=== PATIENT | male | born 1970 | race Caucasian/White ===

== ENCOUNTER → 2018-03-26 | Outpatient (CLI) | payer OTHER ==
[~2018-03-26] MED LIST: FINA1TAB16 PO; OMEP-110 PO; TRAM50TA2 PO; VALA500T4 PO
[2018-03-26 09:37] LABS: HCT (SEDRATE) 46.3 % (39.2-51.8)
[2018-03-26 09:39] LABS: BASOPHILS # (AUTO) 0.03 x10^3/uL (0-0.1); BASOPHILS % (AUTO) 1 % (0-1); EOSINOPHILS % (AUTO) 2 % (1-7); LYMPHOCYTES # (AUTO) 1.65 x10^3/uL (1-3.4); LYMPHOCYTES % (AUTO) 32 % (22-44); MD NO; MEAN CORPUSCULAR HEMOGLOBIN 33.8 pg (27.5-34.5); MEAN CORPUSCULAR HGB CONC 34.8 g/dL (33.2-36.2); MEAN PLATELET VOLUME 7.9 fL (7.4-10.4); MONOCYTES # (AUTO) 0.44 x10^3/uL (0.2-0.8); MONOCYTES % (AUTO) 9 % (2-9); NEUTROPHILS # (AUTO) 2.92 x10^3/uL (1.8-6.8); NEUTROPHILS % (AUTO) 57 % (42-75); PLATELET COUNT 247 x10^3/uL (130-400); RED BLOOD COUNT 4.77 x10^6/uL (4.38-5.82); RED CELL DISTRIBUTION WIDTH 13.5 % (9.4-14.8)
[2018-03-26 09:50] LABS: ALBUMIN 3.9 g/dL (3.4-5.0); ANION GAP 5 mmol/L (5-15); CALCIUM 8.9 mg/dL (8.5-10.1); CHLORIDE 107 mmol/L (98-107)
[2018-03-26 09:55] LABS: ALANINE AMINOTRANSFERASE 29 U/L (12-78); ALKALINE PHOSPHATASE 69 U/L (45-117); CREATININE 1.22 mg/dL (0.7-1.3)
[2018-03-26 10:25] LABS: MICROSCOPIC NOT IND
[2018-03-26 10:27] LABS: CULTURE INDICATED? NO
[2018-03-26 11:23] LABS: INTERNATIONAL NORMALIZED RATIO 1.03 (0.93-1.1); PROTHROMBIN TIME 10.7 Seconds (9.6-11.5)
== END | disposition home or self-care (01) ==
LOC: STAR 08:25
PROVIDERS: ATTEND Orthopaedic Surgery Orthopaedic Surgery of the Spine
DX: Z01.818 Encounter for other preprocedural examination (principal); M54.16 Radiculopathy, lumbar region
CPT/HCPCS: 36415; 71046; 80053; 80074; 81003; 85025; 85610; 85651; 85730; 87806; 93005; G0475

== ENCOUNTER 2018-04-06 10:07 | Day surgery (SDC) | payer OTHER ==
[2018-03-26 08:51] VITALS: BP 115/83
[~2018-04-06] VITALS: Ht 193 cm; Wt 103.2 kg
[2018-04-06] MEDS ORDERED: LACTATED RINGERS 1,000 ML IV SCH (10:45)
[2018-04-06] MEDS ORDERED: GABAPENTIN PO (10:49)
[2018-04-06] MEDS ORDERED: MUPI22OI2 TP (10:56)
[2018-04-06] MEDS ORDERED: LIDOCAINE-MPF 1%, 2ML INFIL ONE (11:00)
[2018-04-06] MEDS ORDERED: PROPOFOL 10 MG/ML, 20ML ONE ×4 (11:49→11:50)
[2018-04-06] MEDS ORDERED: CEFAZOLIN 1,000 MG ONE (11:50)
[2018-04-06] MEDS ORDERED: SODIUM CHLORIDE 0.9% PF 10ML ONE (11:52)
[2018-04-06] MEDS ORDERED: ONDANSETRON 2MG/ML, 2ML ONE (11:57)
[2018-04-06] MEDS ORDERED: DEXAMETHASONE 4 MG/ML, 1ML ONE (11:57)
[2018-04-06] MEDS ORDERED: LIDOCAINE-MPF 2% ,5ML ONE ×2 (11:57)
[2018-04-06] MEDS ORDERED: METOCLOPRAMIDE 5 MG/ML, 2ML ONE (11:57)
[2018-04-06] MEDS ORDERED: ROCURONIUM 10MG/ML,5ML ONE (11:58)
[2018-04-06] MEDS ORDERED: THROMBIN 5,000 UNIT VIAL TP ONE (12:46)
[2018-04-06] MEDS ORDERED: BUPIVACAINE/PF-EPI 0.5% 1:200K ONE (12:46)
[2018-04-06] MEDS ORDERED: VANCOMYCIN 1,000 MG ONE (12:46)
[2018-04-06] MEDS ORDERED: BACITRACIN 50,000 UNIT ONE (12:47)
[2018-04-06] MEDS ORDERED: LIDOCAINE 1%-EPI 1:100K, 30ML ONE (12:47)
[2018-04-06] MEDS ORDERED: MIDAZOLAM 1 MG/ML, 2ML ONE (12:58)
[2018-04-06] MEDS ORDERED: FENTANYL PF 100 MCG/2ML ONE ×2 (12:58→12:59)
[2018-04-06] MEDS ORDERED: KETAMINE 10 MG/ML, 20ML ONE (13:19)
[2018-04-06] MEDS ORDERED: GENTAMICIN 80 MG/2 ML ONE (13:53)
[2018-04-06] MEDS ORDERED: BUPIVACAINE/PF 0.5% ONE (14:13)
[2018-04-06] MEDS ORDERED: OXYcodone 5 MG/5 ML ORAL.SOL UDC ONE (15:39)
[2018-04-06] MEDS ORDERED: MIDAZOLAM 1 MG/ML, 2ML IV PRN (16:00)
[2018-04-06] MEDS ORDERED: ONDANSETRON 2MG/ML, 2ML IVPush PRN (16:00)
[2018-04-06] MEDS ORDERED: MEPERIDINE/PF 25MG/0.5ML IVPush PRN (16:00)
[2018-04-06] MEDS ORDERED: OXYcodone 5 MG/5 ML ORAL.SOL UDC PO PRN (16:00)
[2018-04-06] MEDS ORDERED: FENTANYL PF 100 MCG/2ML IV PRN (16:00)
[2018-04-06] MEDS ORDERED: LABETALOL 5MG/ML, 20ML IV PRN (16:00)
[2018-04-06] MEDS ORDERED: HYDROmorphone 1 MG/ML, 1ML IV PRN (16:00)
== END 2018-04-06 17:45 | disposition home or self-care (01) ==
LOC: OUT 10:07
PROVIDERS: ATTEND Orthopaedic Surgery Orthopaedic Surgery of the Spine
DX: M51.16 Intervertebral disc disorders with radiculopathy, lumbar region (principal); M48.061 Spinal stenosis, lumbar region without neurogenic claudication; M47.26 Other spondylosis with radiculopathy, lumbar region; M43.16 Spondylolisthesis, lumbar region; K21.9 Gastro-esophageal reflux disease without esophagitis; Z98.890 Other specified postprocedural states
CPT/HCPCS: 63040; 72100; J0690; J1100; J1580; J2250; J2405; J2704; J2765; J3010; J3490; J7120; J3370